=== PATIENT | female | born 1955 | race Caucasian/White ===

== ENCOUNTER 2017-02-24 07:30 | Inpatient (IN) | payer OTHER ==
[2017-02-24] MEDS ORDERED: PROTONIX IV IVP STA (07:37)
[2017-02-24] MEDS ORDERED: MORPHINE 4 MG/ML SYRINGE IVP STA (07:37)
[2017-02-24] MEDS ORDERED: SODIUM CHLORIDE 1,000 ML IV STA (07:37)
[2017-02-24] MEDS ORDERED: ZOFRAN 4 MG/2 ML IVP STA (07:37)
[2017-02-24 07:52] VITALS: BMI 22.4
[2017-02-24 08:00] LABS: BASOPHILS % (AUTO) 0.4 % (0.0-3.0); EOSINOPHILS # (AUTO) 0.1 K/ul (0.0-0.7); EOSINOPHILS % (AUTO) 0.7 % (0.0-7.0); HEMOGLOBIN 15.3 g/dl (12.0-16.0); IMMATURE GRANULOCYTE % (AUTO) 0.1 % (0.0-5.0); LYMPHOCYTES # (AUTO) 0.9 K/uL (0.60-3.4); LYMPHOCYTES % (AUTO) 12.8 (10.0-50.0); MEAN CORPUSCULAR HEMOGLOBIN 30.8 pg (27.0-31.0); MEAN CORPUSCULAR HGB CONC 34.8 (31.8-35.4); MEAN CORPUSCULAR VOLUME 88.7 fl (81.0-99.0); MONOCYTES # (AUTO) 0.8 K/uL (0.4-2.0); MONOCYTES % (AUTO) 11.4 (0-10); NEUTROPHILS # (AUTO) 5.4 K/ul (2.0-6.9); NEUTROPHILS % (AUTO) 74.6; PLATELET COUNT 316 10^3/uL (140-440); RED BLOOD COUNT 4.96 10^6/ul (4.20-5.40); WHITE BLOOD COUNT 7.18 K/ul (4.6-10.2)
--- NOTE | 2017-02-24 08:09 | CT ---
EXAM: CT abdomen pelvis without intravenous contrast 02/24/2017. Sagittal and coronal reformatted images obtained HISTORY: Abdominal pain COMPARISON: 12/12/2012 FINDINGS: 4 mm noncalcified nodule in the left lower lobe demonstrates long-term stability consiste nt with benign etiology. The liver shows no acute abnormality the gallbladder has been removed. The adrenal glands and kidneys show no acute process. The spleen and pancreas show no acute abnorma lity. There is no bowel obstruction. No evidence of appendicitis. Unremarkable urinary bladder. No free air or free fluid. Air-fluid levels throughout the colon suggestive of diarrhea. Fluid-filled distal small bowel. Cor relate for enteritis. IMPRESSION: 1. No urinary or bowel obstruction and normal appendix. 2. Fluid-filled distal small bowel. Air-fluid levels throughout the colon. Correlate for enteriti s/diarrhea. 3. Technically limited examination due to lack of intravenous contrast.
[2017-02-24 08:30] LABS: ALBUMIN 4.4 g/dL (3.4-5.0); ALBUMIN/GLOBULIN RATIO 1.19; ANION GAP 19.9; BILIRUBIN,TOTAL 0.8 mg/dL (0.00-1.20); CALCIUM 9.2 mg/dL (8.2-10.2); CREATININE 1.12 mg/dL (0.60-1.30); POTASSIUM 3.9 mmol/L (3.5-5.10); TOTAL PROTEIN 8.1 g/dL (5.8-8.1)
--- NOTE | 2017-02-24 08:34 | ED.PDOC ---
General ED Provider: Dr. TYRON VOGEL Chief Complaint: Nausea/Vomiting Stated Complaint: Patient was seen in the Clinic for diarrhea and vomiting and prescribed Lomotil and zofran . She has been taking but not gotten better. This morning vomited green fluid hence came to the ER. Has had some associated left upper quadrant cramping. Feels weak all over due to diarrhea. Time Seen by Physician: 07:50 Mode of Arrival: Wheelchair Information Source: Patient Exam Limitations: No limitations Primary Care Provider: CRISS VILLA Seen Within Last 72 Hours for Same Complaint By: PCP (Dr. Villa ) Nursing and Triage Documentation Reviewed and Agree: Yes GI Complaint Exam - Vomiting/Diarrhea Complaint/Exam Onset/Duration: 3 days Symptoms Are: Still present Episodes of Vomiting over last 24 Hours: 10 Episodes of Diarrhea Over Last 24 Hours: 20 Initial Severity: Moderate Current Severity: Severe Character of Vomiting: Reports: Bilious Character of Diarrhea: Reports: Watery Aggravating: Reports: Food Alleviating: Reports: None Associated Signs and Symptoms: Reports: Light-headedness, Cramping. Denies: Melena, Hematemesis, Fever, Abdominal pain Related History: Denies: Similar episode, Recent antibiotics Use of Oral Contraceptives: No Use of Depoprovera: No Compliant With Contraceptive Use: No Non-GI Risk Factors: Denies: Vomiting due to neuro, Vomiting due to cardiac Surgical Obstruction Risk Factors: Reports: Bilious emesis Related Surgical History: Reports: Cholecystectomy. Denies: Appendectomy, Gastric Bypass, AAA repair, Small bowel obstruction Abdominal Findings: Absent: Pulsatile mass, Abdominal distention, Unequal femoral pulses, Rebound tenderness, Peritoneal signs, [place] tender, CVA Tenderness, Hernia, Inguinal swelling Kussmaul Respirations Present: No Differential Diagnoses: Dehydration, Gastritis, Viral Gastroenteritis Review of Systems - Review Of Systems Constitutional: Reports: Weakness, Loss of appetite Eyes: Reports: No symptoms Ears, Nose, Mouth, Throat: Reports: No symptoms Respiratory: Reports: No symptoms Cardiac: Reports: No symptoms GI: Reports: Abdominal pain : Reports: No symptoms Musculoskeletal: Reports: No symptoms Skin: Reports: No symptoms Neurological: Reports: Anxiety Endocrine: Reports: Increased thirst Hematologic/Lymphatic: Reports: No symptoms All Other Systems: Reviewed and Negative Past Medical History - Past Medical History Endocrine: Reports: Dyslipidemia Cardiovascular: Reports: None Respiratory: Reports: None Hematological: Reports: None Gastrointestinal: Reports: None Genitourinary: Reports: None Neuro/Psych: Reports: Depression Musculoskeletal: Reports: None Cancer: Reports: None Last Menstrual Period: 12 years - Surgical History General Surgical History: Reports: Cholecystectomy, Other (breast cyst removal, D/C) - Family History Family History: Reports: None - Social History Smoking Status: Former smoker Hx Substance Use: No Alcohol Screening: None Physical Exam - Physical Exam Appearance: Ill-appearing, Thin Ill-appearing: Moderate Pain Distress: Moderate Eyes: ASIA Neck: Supple Respiratory: Airway patent, Breath sounds clear, Breath sounds equal, Respirations nonlabored Cardiovascular: Tachycardia GI/: Soft, Tender (mild with no rebound ) Musculoskeletal: Normal strength, ROM intact, No edema, No calf tenderness Skin: Warm, Dry Neurological: Sensation intact, Alert, Oriented, Disoriented Psychiatric: Anxious Interpretation - Radiology Interpretation Radiology Interpretation By: Radiologist Radiology Results: Negative Exam Interpreted: CT Scan Re-Evaluation - Re-Evaluation Time of Re-Evaluation: 08:44 Status: Improved Physician Notification - Case Discussed Physician Notified: Villa Time of Notification: 08:35 (ok to admit ) Critical Care Note - Critical Care Note Total Time (mins): 5 Course - Course Hematology/Chemistry: 02/24/17 07:50 02/24/17 07:50 Orders, Labs, Meds: Lab Review 02/24/17 07:50 WBC 7.18 RBC 4.96 Hgb 15.3 Hct 44.0 MCV 88.7 MCH 30.8 MCHC 34.8 RDW Coeff of Ancelmo 12.6 Plt Count 316 Immature Gran % (Auto) 0.1 Neut % (Auto) 74.6 Lymph % (Auto) 12.8 [place] % (Auto) 11.4 H Eos % (Auto) 0.7 Baso % (Auto) 0.4 Immature Gran # (Auto) 0.0 Neut # 5.4 Lymph # 0.9 [place] # 0.8 Eos # 0.1 Baso # 0.0 Sodium 136 Potassium 3.9 Chloride 101 Carbon Dioxide 19 L Anion Gap 19.9 BUN Pending Creatinine 1.12 Estimated GFR (MDRD) 49.00 BUN/Creatinine Ratio Pending Glucose 145 H Calcium 9.2 Total Bilirubin 0.80 AST 171 H ALT 88 H Alkaline Phosphatase 77 Total Protein 8.1 Albumin 4.4 Globulin 3.7 Albumin/Globulin Ratio 1.19 Amylase 81 Lipase 32 Orders Category Date Time Status ADMIT PATIENT INPATIENT .TO [facility] (NON-MONITORED ADMISSION 02/24/17 08: 37 Active BED) ACTIVITY .Early Mobilization for VTE Prevention CARE 02/24/17 08:38 Active GIVE HS SNACK 2100 CARE 02/24/17 08:43 Active INTAKE & OUTPUT Q8HR CARE 02/24/17 08:37 Active VITAL SIGNS Q4HR CARE 02/24/17 08:38 Active CLEAR LIQUID DIET DIETARY 02/24/17 Lunch Ordered HS SNACK DIETARY 02/24/17 Dinner Ordered ED IV/MEDIPORT/POWERPORT .ONCE EMERGENCY 02/24/17 07:37 Active AMYLASE Stat LAB 02/24/17 07:50 Results CBC W/ AUTO DIFF DAILY@0600 LAB 02/25/17 06:00 Ordered CBC W/ AUTO DIFF DAILY@0600 LAB 02/26/17 06:00 Ordered CBC W/ AUTO DIFF DAILY@0600 LAB 02/27/17 06:00 Ordered CBC W/ AUTO DIFF DAILY@0600 LAB 02/28/17 06:00 Ordered CBC W/ AUTO DIFF DAILY@0600 LAB 03/01/17 06:00 Ordered CBC W/ AUTO DIFF DAILY@0600 LAB 03/02/17 06:00 Ordered CBC W/ AUTO DIFF DAILY@0600 LAB 03/03/17 06:00 Ordered CBC W/ AUTO DIFF DAILY@0600 LAB 03/04/17 06:00 Ordered CBC W/ AUTO DIFF DAILY@0600 LAB 03/05/17 06:00 Ordered CBC W/ AUTO DIFF DAILY@0600 LAB 03/06/17 06:00 Ordered CBC W/ AUTO DIFF DAILY@0600 LAB 03/07/17 06:00 Ordered CBC W/ AUTO DIFF DAILY@0600 LAB 03/08/17 06:00 Ordered CBC W/ AUTO DIFF DAILY@0600 LAB 03/09/17 06:00 Ordered CBC W/ AUTO DIFF DAILY@0600 LAB 03/10/17 06:00 Ordered CBC W/ AUTO DIFF DAILY@0600 LAB 03/11/17 06:00 Ordered CBC W/ AUTO DIFF DAILY@0600 LAB 03/12/17 06:00 Ordered CBC W/ AUTO DIFF DAILY@0600 LAB 03/13/17 06:00 Ordered CBC W/ AUTO DIFF DAILY@0600 LAB 03/14/17 06:00 Ordered CBC W/ AUTO DIFF DAILY@0600 LAB 03/15/17 06:00 Ordered CBC W/ AUTO DIFF DAILY@0600 LAB 03/16/17 06:00 Ordered CBC W/ AUTO DIFF Stat LAB 02/24/17 07:50 Completed COMPREHENSIVE METABOLIC PANEL DAILY@0600 LAB 02/25/17 06:00 Ordered COMPREHENSIVE METABOLIC PANEL DAILY@0600 LAB 02/26/17 06:00 Ordered COMPREHENSIVE METABOLIC PANEL DAILY@0600 LAB 02/27/17 06:00 Ordered COMPREHENSIVE METABOLIC PANEL DAILY@0600 LAB 02/28/17 06:00 Ordered COMPREHENSIVE METABOLIC PANEL DAILY@0600 LAB 03/01/17 06:00 Ordered COMPREHENSIVE METABOLIC PANEL DAILY@0600 LAB 03/02/17 06:00 Ordered COMPREHENSIVE METABOLIC PANEL DAILY@0600 LAB 03/03/17 06:00 Ordered COMPREHENSIVE METABOLIC PANEL DAILY@0600 LAB 03/04/17 06:00 Ordered COMPREHENSIVE METABOLIC PANEL DAILY@0600 LAB 03/05/17 06:00 Ordered COMPREHENSIVE METABOLIC PANEL DAILY@0600 LAB 03/06/17 06:00 Ordered COMPREHENSIVE METABOLIC PANEL DAILY@0600 LAB 03/07/17 06:00 Ordered COMPREHENSIVE METABOLIC PANEL DAILY@0600 LAB 03/08/17 06:00 Ordered COMPREHENSIVE METABOLIC PANEL DAILY@0600 LAB 03/09/17 06:00 Ordered COMPREHENSIVE METABOLIC PANEL DAILY@0600 LAB 03/10/17 06:00 Ordered COMPREHENSIVE METABOLIC PANEL DAILY@0600 LAB 03/11/17 06:00 Ordered COMPREHENSIVE METABOLIC PANEL DAILY@0600 LAB 03/12/17 06:00 Ordered COMPREHENSIVE METABOLIC PANEL DAILY@0600 LAB 03/13/17 06:00 Ordered COMPREHENSIVE METABOLIC PANEL DAILY@0600 LAB 03/14/17 06:00 Ordered COMPREHENSIVE METABOLIC PANEL DAILY@0600 LAB 03/15/17 06:00 Ordered COMPREHENSIVE METABOLIC PANEL DAILY@0600 LAB 03/16/17 06:00 Ordered COMPREHENSIVE METABOLIC PANEL Stat LAB 02/24/17 07:50 Results LIPASE Stat LAB 02/24/17 07:50 Results URINALYSIS C & S IF INDICATED Stat LAB 02/24/17 07:37 Uncollected 0.9 % Sodium Chloride [Saline Flush] MEDS 02/24/17 07:37 Ordered 1 syr IVF PRN PRN Diphenoxylate HCl/Atropine [Lomotil] MEDS 02/24/17 08:37 Ordered 1 tab PO QID PRN Metoclopramide HCl [Reglan] MEDS 02/24/17 08:37 Ordered 5 mg IVP Q6H PRN Morphine Sulfate [Morphine 2 mg/ml Syringe] MEDS 02/24/17 08:37 Ordered 2 mg IVP Q4H PRN Morphine Sulfate [Morphine 4 mg/ml Syringe] MEDS 02/24/17 07:37 Discontinued 4 mg IVP ONCE STA Ondansetron HCl/Pf [Zofran 4 mg/2 ml] MEDS 02/24/17 07:37 Discontinued 4 mg IVP ONCE STA Ondansetron HCl/Pf [Zofran 4 mg/2 ml] MEDS 02/24/17 08:37 Ordered 4 mg IVP Q6H PRN Pantoprazole Sodium [Protonix IV] MEDS 02/24/17 09:00 Ordered 40 mg IVP DAILY Pantoprazole Sodium [Protonix IV] MEDS 02/24/17 07:37 Discontinued 40 mg IVP ONCE STA Potassium Chloride/D5-0.9%NaCl [D5%-Ns-KCl 20 Meq/l IV MEDS 02/24/17 09:00 Ordered Pricila] 1,000 ml IV 125 mls/hr Pravastatin Sodium [Pravachol] MEDS 02/24/17 21:00 Ordered 40 mg PO BEDTIME Sertraline HCl [Zoloft] MEDS 02/24/17 09:00 Ordered 50 mg PO DAILY Sodium Chloride 0.9% [Sodium Chloride] 1,000 ml MEDS 02/24/17 09:00 Ordered IV 1,000 mls/hr Sodium Chloride 0.9% [Sodium Chloride] 1,000 ml MEDS 02/24/17 07:37 Discontinued IV BOLUS RESUSCITATION STATUS Routine OTHERS 02/24/17 08:[address] ABD/PEL WO RENAL STONE PROT Stat RADS 02/24/17 07:37 Completed PT CONSULT Routine THERAPIES 02/24/17 Ordered Medications Generic Name Dose Route Start Last Admin Trade Name Freq PRN Reason Stop Dose Admin Diphenoxylate HCl/Atropine 1 tab 02/24/17 08:37 Lomotil PO QID PRN Diarrhea Sodium Chloride 1,000 mls @ 1,000 mls/hr 02/24/17 09:00 Sodium Chloride IV .Q1H AMBAR Potassium Chloride/Dextrose/Sod Cl 1,000 mls @ 125 mls/hr 02/24/17 09:00 D5%-Ns-Kcl 20 Meq/L Iv Pricila IV .Q8H AMBAR Metoclopramide HCl 5 mg 02/24/17 08:37 Reglan IVP Q6H PRN Nausea / Vomiting Morphine Sulfate 2 mg 02/24/17 08:37 Morphine 2 Mg/Ml Syringe IVP Q4H PRN Severe Pain Ondansetron HCl 4 mg 02/24/17 08:37 Zofran 4 Mg/2 Ml IVP Q6H PRN Nausea / Vomiting Pantoprazole Sodium 40 mg 02/24/17 09:00 Protonix Iv IVP DAILY AMBAR Pravastatin Sodium 40 mg 02/24/17 21:00 Pravachol PO BEDTIME AMBAR Sertraline HCl 50 mg 02/24/17 09:00 Zoloft PO DAILY AMBAR Sodium Chloride 1 syr 02/24/17 07:37 02/24/17 08:29 Saline Flush IVF 1 syr PRN PRN Administration To flush IV Discontinued Medications Generic Name Dose Route Start Last Admin Trade Name Freq PRN Reason Stop Dose Admin Sodium Chloride 1,000 mls @ 1,000 mls/hr 02/24/17 07:37 02/24/17 08:22 Sodium Chloride IV 02/24/17 08:36 1,000 mls/hr BOLUS STA Administration Morphine Sulfate 4 mg 02/24/17 07:37 Morphine 4 Mg/Ml Syringe IVP 02/24/17 07:38 ONCE STA Ondansetron HCl 4 mg 02/24/17 07:37 02/24/17 08:22 Zofran 4 Mg/2 Ml IVP 02/24/17 07:38 4 mg ONCE STA Administration Pantoprazole Sodium 40 mg 02/24/17 07:37 02/24/17 08:24 Protonix Iv IVP 02/24/17 07:38 40 mg ONCE STA Administration Vital Signs: Temp Pulse Resp BP Pulse Ox 02/24/17 07:31 96.1 F L 107 H 20 117/84 99 Departure - Departure Time of Disposition: 08:49 Disposition: ADMITTED INPATIENT Discharge Problem: Gastroenteritis, Nausea, Vomiting Condition: Stable Pt referred to PMD for follow-up: No (admitted ) Allergies/Adverse Reactions: Allergies Penicillins Adverse Reaction (Verified 02/24/17 07:40) Home Medications: Ambulatory Orders Biotin 1 mg PO DAILY 02/24/17 Cholecalciferol (Vitamin D3) [Vitamin D3] 1,000 unit PO DAILY 02/24/17 Diphenhydramine HCl [Benadryl] 25 mg PO ONCE 02/24/17 Diphenoxylate HCl/Atropine [Diphenoxylate-Atrop 2.5-0.025] 1 each PO TID PRN Multivitamin 1 cap PO DAILY 02/24/17 Ondansetron [Zuplenz] 4 mg PO TID PRN 02/24/17 Pravastatin Sodium [Pravachol] 40 mg PO BEDTIME 02/24/17 Sertraline HCl 50 mg PO DAILY 02/24/17
[2017-02-24] MEDS ORDERED: ZOFRAN 4 MG/2 ML IVP PRN (08:37)
[2017-02-24] MEDS ORDERED: MORPHINE 2 MG/ML SYRINGE IVP PRN (08:37)
[2017-02-24] MEDS ORDERED: REGLAN IVP PRN (08:37)
[2017-02-24 08:53] LABS: BUN/CREATININE RATIO 21.42
[2017-02-24] MEDS: ZOLOFT PO SCH (11:04)
[2017-02-24] MEDS: PROTONIX IV IVP SCH (11:11)
[2017-02-24] MEDS: SODIUM CHLORIDE 1,000 ML IV SCH ×5 (11:26→20:05)
[2017-02-24] MEDS: D5%-NS-KCL 20 MEQ/L IV SOL 1,000 ML IV SCH ×2 (12:46→20:57)
[2017-02-24 16:11] LABS: BILIRUBIN,URINE 1+ (NEGATIVE); KETONES,URINE 1+ (NEGATIVE); LEUKOCYTE ESTERASE ,URINE 1+ (NEGATIVE); NITRITE,URINE Negative (NEGATIVE); PH,URINE 5.5 (5-9); PROTEIN,URINE 1+ (NEGATIVE); URINE, BLOOD Negative (NEGATIVE)
[2017-02-24 16:14] LABS: ADD URINE MICROSCOPIC YES
[2017-02-24 16:15] LABS: BACTERIA,URINE 1+ (NOT PRESENT)
[2017-02-24] MEDS: PRAVACHOL PO SCH (20:57)
[2017-02-25] MEDS ORDERED: POTASSIUM CHLORIDE 20 MEQ VIAL-ADDITIVE ONLY IV ONE (05:20)
[2017-02-25 05:46] LABS: BASOPHILS % (AUTO) 0.9 % (0.0-3.0); EOSINOPHILS # (AUTO) 0.1 K/ul (0.0-0.7); EOSINOPHILS % (AUTO) 1.8 % (0.0-7.0); HEMATOCRIT 33.3 % (37.0-47.0); HEMOGLOBIN 11.4 g/dl (12.0-16.0); IMMATURE GRANULOCYTE % (AUTO) 0.3 % (0.0-5.0); LYMPHOCYTES # (AUTO) 0.9 K/uL (0.60-3.4); LYMPHOCYTES % (AUTO) 28.6 (10.0-50.0); MEAN CORPUSCULAR HEMOGLOBIN 30.7 pg (27.0-31.0); MEAN CORPUSCULAR HGB CONC 34.2 (31.8-35.4); MEAN CORPUSCULAR VOLUME 89.8 fl (81.0-99.0); MONOCYTES # (AUTO) 0.5 K/uL (0.4-2.0); MONOCYTES % (AUTO) 16.6 (0-10); NEUTROPHILS # (AUTO) 1.7 K/ul (2.0-6.9); NEUTROPHILS % (AUTO) 51.8; PLATELET COUNT 219 10^3/uL (140-440); RED BLOOD COUNT 3.71 10^6/ul (4.20-5.40); WHITE BLOOD COUNT 3.25 K/ul (4.6-10.2)
[2017-02-25] MEDS: D5%-NS-KCL 20 MEQ/L IV SOL 1,000 ML IV SCH ×2 (05:55→14:28)
[2017-02-25 06:20] LABS: ALBUMIN 3.2 g/dL (3.4-5.0); ALBUMIN/GLOBULIN RATIO 1.33; ANION GAP 8.8; BILIRUBIN,TOTAL 0.43 mg/dL (0.00-1.20); BUN/CREATININE RATIO 13.04; CALCIUM 7.5 mg/dL (8.2-10.2); CREATININE 0.69 mg/dL (0.60-1.30); POTASSIUM 3.8 mmol/L (3.5-5.10); TOTAL PROTEIN 5.6 g/dL (5.8-8.1)
[2017-02-25] MEDS: PROTONIX IV IVP SCH (08:47)
[2017-02-25] MEDS: ZOLOFT PO SCH (08:51)
[2017-02-25] MEDS: LOMOTIL PO PRN ×2 (11:11→20:33)
[2017-02-25] MEDS ORDERED: D5%-NS-KCL 20 MEQ/L IV SOL 1,000 ML IV SCH (14:28)
[2017-02-25] MEDS: PRAVACHOL PO SCH (20:33)
[2017-02-26 05:52] LABS: BASOPHILS % (AUTO) 1.1 % (0.0-3.0); EOSINOPHILS # (AUTO) 0.1 K/ul (0.0-0.7); EOSINOPHILS % (AUTO) 2.8 % (0.0-7.0); HEMATOCRIT 32.8 % (37.0-47.0); HEMOGLOBIN 11.2 g/dl (12.0-16.0); IMMATURE GRANULOCYTE % (AUTO) 0.4 % (0.0-5.0); LYMPHOCYTES # (AUTO) 1.2 K/uL (0.60-3.4); LYMPHOCYTES % (AUTO) 43.1 (10.0-50.0); MEAN CORPUSCULAR HEMOGLOBIN 30.6 pg (27.0-31.0); MEAN CORPUSCULAR HGB CONC 34.1 (31.8-35.4); MEAN CORPUSCULAR VOLUME 89.6 fl (81.0-99.0); MONOCYTES # (AUTO) 0.4 K/uL (0.4-2.0); MONOCYTES % (AUTO) 15.7 (0-10); NEUTROPHILS % (AUTO) 36.9; PLATELET COUNT 210 10^3/uL (140-440); RED BLOOD COUNT 3.66 10^6/ul (4.20-5.40); WHITE BLOOD COUNT 2.81 K/ul (4.6-10.2)
[2017-02-26 06:20] LABS: ALBUMIN 3.2 g/dL (3.4-5.0); ALBUMIN/GLOBULIN RATIO 1.33; ANION GAP 8.4; BILIRUBIN,TOTAL 0.48 mg/dL (0.00-1.20); BUN/CREATININE RATIO 4.91; CALCIUM 7.9 mg/dL (8.2-10.2); CREATININE 0.61 mg/dL (0.60-1.30); POTASSIUM 3.4 mmol/L (3.5-5.10); TOTAL PROTEIN 5.6 g/dL (5.8-8.1)
[2017-02-26] MEDS ORDERED: DECADRON 4 MG/ML SDV IM STA (08:05)
[2017-02-26] MEDS ORDERED: TORADOL IVP STA (08:05)
[2017-02-26] MEDS ORDERED: [UNRECOGNIZED DRUG - MIXTURE] IV SCH (08:08)
[2017-02-26] MEDS: ZOLOFT PO SCH (08:34)
[2017-02-26] MEDS: PROTONIX IV IVP SCH (08:40)
--- NOTE | 2017-02-26 10:23 | PCM.PROG ---
Attending Provider: ATTENDING PROVIDER: Dr. CRISS VILLA DATE OF SERVICE: 02/26/17 SUBJECTIVE: This 61 year old WHITE/ F was hospitalized 02/24/17. The patient is admitted with acute gastroenteritis. The patient continues to have diarrhea. Mild nausea, no vomiting. She is on a full liquid diet. Liver functions are better. The patient has mild hypokalemia REVIEW OF SYSTEMS: CONSTITUTIONAL: No night sweats. No fatigue, malaise, lethargy. No fever or chills. HEENT: Eyes: No visual changes. No eye pain. No eye discharge. ENT: No runny nose. No epistaxis. No sinus pain. No odynophagia. No congestion. RESPIRATORY: No cough, no congestion. No hemoptysis. CARDIOVASCULAR: No angina symptoms. No CHF symptoms. No atypical chest pain for CAD. No palpitations. No shortness of breath. GASTROINTESTINAL: Appetite is not good. Diarrhea with no abdominal cramping or pain. Mild nausea. No vomiting. No constipation. No hematemesis. No hematochezia. GENITOURINARY: No urgency. No frequency. No dysuria. No hematuria. No obstructive symptoms. No discharge. No pain. No significant abnormal bleeding. MUSCULOSKELETAL: No musculoskeletal pain; no joint swelling. NEUROLOGICAL: Awake, alert, oriented to time, place and person. No headache. No neck pain. No syncope. No seizures. No dizziness. PSYCHIATRIC: Not anxious. No depression. No suicidal thoughts. No homicidal thoughts. SKIN: No rash. No lesions. No wounds. ENDOCRINE: No unexplained weight loss. No weight gain. HEMATOLOGIC/LYMPHATIC: No anemia. No purpura. No petechiae. No prolonged or excessive bleeding. No palpable lymph nodes. PHYSICAL EXAMINATION: GENERAL: The patient is awake, alert and oriented, lying in bed in no distress. VITAL SIGNS: Temperature 96.9 F, Pulse 86, Respiratory Rate 16, BP 118/77, Pulse Ox 97% HEENT: Head normocephalic, atraumatic. Eyes: Extraocular muscles are intact. Pupils are equal, round and reactive to light and accommodation. Ears: No lesions. Nose appeared normal. Throat: No exudate or erythema. NECK: Supple. No JVD, no carotid bruit. No lymphadenopathy or thyromegaly. LUNGS: Clear to auscultation. Percussion note normal. Chest symmetrical. HEART: S1, S2, no S3. No murmurs. No cyanosis or clubbing. No ascites. Pulses: Dorsalis pedis and posterior tibial pulses +1 to +2 both sides. ABDOMEN: Soft. Non-tender. Bowel sounds active. No CVA tenderness. No mass felt. EXTREMITIES: No edema. Full range of motion of all extremities, equal. NEUROLOGIC: No focal deficit. Cranial nerves II through XII are grossly intact. No headache, no double vision or headache. SKIN: Not dry. Intact. Turgor-normal. LYMPHATIC: No palpable lymph nodes/no lymphedema. MUSCULOSKELETAL: Normal joints with no swelling. Muscle tone is normal. LAB REVIEW: 02/26/17 04:50 02/26/17 04:50 02/26/17 04:50: WBC 2.81 L, RBC 3.66 L, Hgb 11.2 L, Hct 32.8 L, MCV 89.6, MCH 30.6, MCHC 34.1, RDW Coeff of Ancelmo 12.7, Plt Count 210, Immature Gran % (Auto) 0.4, Neut % (Auto) 36.9, Lymph % (Auto) 43.1, [place] % (Auto) 15.7 H, Eos % (Auto ) 2.8, Baso % (Auto) 1.1, Immature Gran # (Auto) 0.0, Neut # 1.0 L, Lymph # 1.2 , [place] # 0.4, Eos # 0.1, Baso # 0.0, Sodium 142, Potassium 3.4 L, Chloride 115 H , Carbon Dioxide 22 L, Anion Gap 8.4, BUN 3 L, Creatinine 0.61, Estimated GFR ( MDRD) 99.00, BUN/Creatinine Ratio 4.91, Glucose 90, Calcium 7.9 L, Total Bilirubin 0.48, AST 59 H D, ALT 123 H D, Alkaline Phosphatase 55, Total Protein 5.6 L, Albumin 3.2 L, Globulin 2.4, Albumin/Globulin Ratio 1.33 ASSESSMENT: 1. Acute gastroenteritis, resolving slowly. PLAN: 1. Continue symptomatic treatment with Lomotil 2. Advance diet to soft 3. Liver functions are better, scheduled for ultrasound of abdomen this a.m. 4. Potassium supplement being given 5. D/C Pravastatin 6. IV fluids at 50 cc 7. Up and about 8. Toradol 30 mg IV now 9. 1/2 cc Decadron Plan and coordination of the patient's care discussed in the presence of [employer] Dean and nurse. CONDITION: Stable SCRIBED BY: GIOVANY MCCOY Parole Director scribed while in presence of service performed by Dr. CRISS VILLA on 02/26/17 ([id number])
--- NOTE | 2017-02-26 12:18 | US ---
EXAM: Ultrasound abdomen limited HISTORY: Elevated liver enzymes COMPARISON: None TECHNIQUE: Limited ultrasound abdomen right upper quadrant was performed FINDINGS: Pancreas obscured secondary bowel gas shadowing. Liver normal in size and echogenicity. Main portal vein patent with normal direction of flow. Patient status post cholecystectomy. Mild dilation of the common bile duct measuring 0.8 cm IMPRESSION: 1. Status post cholecystectomy. Mild dilation of the common bile duct measuring 0.8 cm may be post surgical. Findings can be correlated with liver function tests. 2. Normal sonographic appearance of the liver.
--- NOTE | 2017-02-26 13:09 | HP ---
DATE OF SERVICE: 02/24/17 REASON FOR HOSPITALIZATION/HISTORY OF PRESENT ILLNESS: Acute gastroenteritis type of symptoms for nearly 2-3 days duration. According to the patient the symptoms started a few days prior to hospitalization with nausea. She doesn't remember anything that she could have eaten could have started it. The patient feelings, weak, tired and she has lost 6-7 pounds in last 2-3 days. She is unable to eat anything. She is throwing up and practically 8-10 times diarrhea with vomiting everyday for last 2 days. She was seen in the emergency room by ER attending on 02-24-17. She was found to be dehydrated and was hospitalized. REVIEW OF SYSTEMS: CONSTITUTIONAL: No night sweats. Weakness and fatigue. No fever or chills. HEENT: Eyes: No visual changes. No eye pain. No eye discharge. ENT: No runny nose. No epistaxis. No sinus pain. No sore throat. No odynophagia. No ear pain. No congestion. RESPIRATORY: No cough, no congestion. No hemoptysis. CARDIOVASCULAR: No angina symptoms. No CHF symptoms. No atypical chest pain for CAD. No palpitations. No shortness of breath. GASTROINTESTINAL: No abdominal pain. Nausea and had been vomiting for two days prior to hospitalization. Diarrhea and loose bowel movements. No blood in the stool. Cramping in the abdomen. Light headedness. No hematemesis. No hematochezia. GENITOURINARY: No urgency. No frequency. No dysuria. No hematuria. No obstructive symptoms. No discharge. No pain. No significant abnormal bleeding. MUSCULOSKELETAL: No musculoskeletal pain. No joint swelling. No arthritis. NEUROLOGICAL: No headache. No neck pain. No syncope. No seizures. No dizziness. PSYCHIATRIC: Not anxious. No depression. No suicidal thoughts. No homicidal thoughts. SKIN: No rash. No lesions. No wounds. ENDOCRINE: No unexplained weight loss. No weight gain. HEMATOLOGIC/LYMPHATIC: No anemia. No purpura. No petechiae. No prolonged or excessive bleeding. No palpable lymph nodes. PERSONAL/FAMILY/SOCIAL HISTORY: The patient is and lives with the . Non-smoker and no alcohol abuse. PAST MEDICAL/SURGICAL PROBLEMS: Kyphosis Chronic lung disease Dyslipidemia Depression Generalized osteoarthritis MEDICATIONS: Biotin Vitamin D3 Benadryl Pravastatin Sertraline The patient was given Lomotil and Zofran as an outpatient for this gastroenteritis but in fact the patient's condition worsened. ALLERGIES: Penicillin PHYSICAL EXAMINATION: GENERAL: The patient is oriented to time, place and person. VITAL SIGNS: Temperature 98.5, pulse 80, respiratory rate 20, blood pressure 110/70 and pulse ox 97%. HEENT: Head normocephalic, atraumatic. Eyes: Extraocular muscles are intact. Pupils are equal, round and reactive to light and accommodation. Ears: No lesions. Nose appeared normal. Throat: No exudate or erythema. Mucosa membrane dry. Some what pale. NECK: Supple. No JVD, no carotid bruit. No lymphadenopathy or thyromegaly. LUNGS: Decreased breath sounds but Clear to auscultation. Percussion note normal. Chest symmetrical. HEART: S1, S2, no S3. No murmurs. No cyanosis or clubbing. No ascites. Pulses: Dorsalis pedis and posterior tibial pulses +1 to +2 both sides. ABDOMEN: Soft. Nontender. Bowel sounds hyperactive. No CVA tenderness. No mass felt. EXTREMITIES: No edema. Full range of motion of all extremities, equal. NEUROLOGIC: No focal deficit. Cranial nerves II through XII are grossly intact. No headache, no double vision or headache. SKIN: Dry. Intact. Turgor - normal. LYMPHATIC: No palpable lymph nodes/no lymphedema. MUSCULOSKELETAL: Normal joints with no swelling. Muscle tone is normal. Kyphosis and Scoliosis present. LABS: Hgb 15, hct 44, WBC 7,000 normal differential, creatinine 1.1, BUN 24, potassium 3.9, glucose 145, AST 171, ALT 88 and [place] 11.4 ASSESSMENT: 1. Acute gastroenteritis 2. Normal liver profile 3. Increase monocyte with normal WBC count, in fact on the lower side could be related to viral acute gastroenteritis 4. Dehydration 5. Chronic lung disease 6. Depression 7. Scoliosis/Kyphosis with generalized osteoarthritis PLAN: 1. Continue Lomotil 2. Continue Reglan 3. Continue Zofran 4. Continue Morphine 5. IV fluids 1,000cc D5 1/2 normal saline 125cc per hour 6. Continue Zoloft 7. Pravachol CONDITION: Stable. TIME SPENT: More than 70 minutes. MTDD
[2017-02-26] MEDS ORDERED: BENADRYL PO SCH (21:00)
[2017-02-27 05:19] LABS: BASOPHILS % (AUTO) 0.8 % (0.0-3.0); EOSINOPHILS % (AUTO) 0.6 % (0.0-7.0); HEMATOCRIT 33.1 % (37.0-47.0); HEMOGLOBIN 11.5 g/dl (12.0-16.0); IMMATURE GRANULOCYTE % (AUTO) 0.2 % (0.0-5.0); LYMPHOCYTES # (AUTO) 2.3 K/uL (0.60-3.4); MEAN CORPUSCULAR HEMOGLOBIN 30.7 pg (27.0-31.0); MEAN CORPUSCULAR HGB CONC 34.7 (31.8-35.4); MEAN CORPUSCULAR VOLUME 88.5 fl (81.0-99.0); MONOCYTES # (AUTO) 0.6 K/uL (0.4-2.0); MONOCYTES % (AUTO) 12.6 (0-10); NEUTROPHILS % (AUTO) 39.8; PLATELET COUNT 245 10^3/uL (140-440); RED BLOOD COUNT 3.74 10^6/ul (4.20-5.40); WHITE BLOOD COUNT 4.91 K/ul (4.6-10.2)
[2017-02-27 05:39] LABS: ALBUMIN 3.5 g/dL (3.4-5.0); ALBUMIN/GLOBULIN RATIO 1.35; ANION GAP 11.5; BILIRUBIN,TOTAL 0.62 mg/dL (0.00-1.20); BUN/CREATININE RATIO 10.76; CALCIUM 8.6 mg/dL (8.2-10.2); CREATININE 0.65 mg/dL (0.60-1.30); POTASSIUM 3.5 mmol/L (3.5-5.10); TOTAL PROTEIN 6.1 g/dL (5.8-8.1)
--- NOTE | 2017-02-27 08:19 | PN ---
DATE OF SERVICE: 02/25/17 SUBJECTIVE: The patient is a 61 year old white female hospitalized with acute gastroenteritis. The patient's acute gastroenteritis seems to be resolving. The patient is feeling fatigue, tired and generalized aches and pain's. The patient' s WBC count is low indicating viral disease and also the liver profile is abnormal indicating the same thing. REVIEW OF SYSTEMS: CONSTITUTIONAL: No night sweats. Weakness and fatigue. No fever or chills. HEENT: Eyes: No visual changes. No eye pain. No eye discharge. ENT: No runny nose. No epistaxis. No sinus pain. No sore throat. No odynophagia. No congestion. RESPIRATORY: No cough, no congestion. No hemoptysis. CARDIOVASCULAR: No angina symptoms. No CHF symptoms. No atypical chest pain for CAD. No palpitations. No shortness of breath. GASTROINTESTINAL: No abdominal cramping or pain at all. Mild nausea but vomiting is practically absent for past 24 hours. Diarrhea few and far between. No hematemesis. No hematochezia. Appetite is improving some but still not good. GENITOURINARY: No urgency. No frequency. No dysuria. No hematuria. No obstructive symptoms. No discharge. No pain. No significant abnormal bleeding. MUSCULOSKELETAL: No musculoskeletal pain; no joint swelling. NEUROLOGICAL: No headache. No neck pain. No syncope. No seizures. No dizziness. PSYCHIATRIC: Not anxious. No depression. No suicidal thoughts. No homicidal thoughts. SKIN: No rash. No lesions. No wounds. ENDOCRINE: No unexplained weight loss. No weight gain. HEMATOLOGIC/LYMPHATIC: No anemia. No purpura. No petechiae. No prolonged or excessive bleeding. No palpable lymph nodes. PHYSICAL EXAMINATION: GENERAL: The patient is oriented to time, place and person. VITAL SIGNS: Temperature 98, pulse 84, respiratory rate 20, blood pressure 123/ 73 and pulse ox 96%. HEENT: Head normocephalic, atraumatic. Eyes: Extraocular muscles are intact. Pupils are equal, round and reactive to light and accommodation. Ears: No lesions. Nose appeared normal. Throat: No exudate or erythema. NECK: Supple. No JVD, no carotid bruit. No lymphadenopathy or thyromegaly. LUNGS: Decreased breath sounds but clear to auscultation. Percussion note normal. Chest symmetrical. HEART: S1, S2, no S3. No murmurs. No cyanosis or clubbing. No ascites. Pulses: Dorsalis pedis and posterior tibial pulses +1 to +2 both sides. ABDOMEN: Soft. Nontender. Bowel sounds active. No CVA tenderness. No mass felt. EXTREMITIES: No edema. Full range of motion of all extremities, equal. NEUROLOGIC: No focal deficit. Cranial nerves II through XII are grossly intact. No headache, no double vision or headache. SKIN: Not dry. Intact. Turgor - normal. LYMPHATIC: No palpable lymph nodes/no lymphedema. MUSCULOSKELETAL: Normal joints with no swelling. Muscle tone is normal. LABS: Hgb 11.4, hct 33, WBC 3,200 normal differential, creatinine 0.6, BUN 9 and potassium 3.8. ASSESSMENT: 1. Acute viral gastroenteritis 2. Dehydration 3. Abnormal liver profile because of the viral gastroenteritis PLAN: 1. CBC and CMP 2. Cut down IV fluids to 50cc 3. Encourage patient to eat 4. Explained about viral gastroenteritis and it's symptoms and that those symptoms could last for few weeks. CONDITION: Stable. TIME SPENT: More than 30 minutes. Plan and coordination of the patient's care discussed in the presence of nurse. BIB
[2017-02-27] MEDS: ZOLOFT PO SCH (09:32)
[2017-02-27] MEDS: PROTONIX IV IVP SCH (09:33)
--- NOTE | 2017-02-27 10:16 | PCM.PROG ---
Attending Provider: ATTENDING PROVIDER: Dr. CRISS VILLA DATE OF SERVICE: 02/27/17 SUBJECTIVE: This 61 year old WHITE/ F was hospitalized 02/24/17. The patient is admitted with acute viral gastroenteritis. The patient's liver function normal. WBC count is coming up. She is feeling better. She has no nausea, no vomiting and no diarrhea. She is up and about, wants to go home. The patient is able to tolerate food very well. REVIEW OF SYSTEMS: CONSTITUTIONAL: No night sweats. No fatigue, malaise, lethargy. No fever or chills. HEENT: Eyes: No visual changes. No eye pain. No eye discharge. ENT: No runny nose. No epistaxis. No sinus pain. No odynophagia. No congestion. RESPIRATORY: No cough, no congestion. No hemoptysis. CARDIOVASCULAR: No angina symptoms. No CHF symptoms. No atypical chest pain for CAD. No palpitations. No shortness of breath. GASTROINTESTINAL: No abdominal pain. No nausea or vomiting. No diarrhea or constipation. No hematemesis. No hematochezia. GENITOURINARY: No urgency. No frequency. No dysuria. No hematuria. No obstructive symptoms. No discharge. No pain. No significant abnormal bleeding. MUSCULOSKELETAL: No musculoskeletal pain; no joint swelling. NEUROLOGICAL: Awake, alert, oriented to time, place and person. No headache. No neck pain. No syncope. No seizures. No dizziness. PSYCHIATRIC: Not anxious. No depression. No suicidal thoughts. No homicidal thoughts. SKIN: No rash. No lesions. No wounds. ENDOCRINE: No unexplained weight loss. No weight gain. HEMATOLOGIC/LYMPHATIC: No anemia. No purpura. No petechiae. No prolonged or excessive bleeding. No palpable lymph nodes. PHYSICAL EXAMINATION: GENERAL: The patient is awake, alert and oriented, lying/sitting in bed in no distress. VITAL SIGNS: Temperature 97.1 F, Pulse 86, Respiratory Rate 20, BP 128/84, Pulse Ox 97% HEENT: Head normocephalic, atraumatic. Eyes: Extraocular muscles are intact. Pupils are equal, round and reactive to light and accommodation. Ears: No lesions. Nose appeared normal. Throat: No exudate or erythema. NECK: Supple. No JVD, no carotid bruit. No lymphadenopathy or thyromegaly. LUNGS: Decreased breath sounds. Clear to auscultation. Percussion note normal. Chest symmetrical. HEART: S1, S2, no S3. No murmurs. No cyanosis or clubbing. No ascites. Pulses: Dorsalis pedis and posterior tibial pulses +1 to +2 both sides. ABDOMEN: Soft. Non-tender. Bowel sounds active. No CVA tenderness. No mass felt. EXTREMITIES: No edema. Full range of motion of all extremities, equal. NEUROLOGIC: No focal deficit. Cranial nerves II through XII are grossly intact. No headache, no double vision or headache. SKIN: Not dry. Intact. Turgor-normal. LYMPHATIC: No palpable lymph nodes/no lymphedema. MUSCULOSKELETAL: Normal joints with no swelling. Muscle tone is normal. LAB REVIEW: 02/27/17 05:16 02/27/17 05:16 02/27/17 05:16: WBC 4.91, RBC 3.74 L, Hgb 11.5 L, Hct 33.1 L, MCV 88.5, MCH 30.7 , MCHC 34.7, RDW Coeff of Ancelmo 12.2, Plt Count 245, Immature Gran % (Auto) 0.2, Neut % (Auto) 39.8, Lymph % (Auto) 46.0, [place] % (Auto) 12.6 H, Eos % (Auto) 0.6 , Baso % (Auto) 0.8, Immature Gran # (Auto) 0.0, Neut # 2.0, Lymph # 2.3, [place] # 0.6, Eos # 0.0, Baso # 0.0, Sodium 143, Potassium 3.5, Chloride 110 H, Carbon Dioxide 25, Anion Gap 11.5, BUN 7, Creatinine 0.65, Estimated GFR (MDRD) 92.00, BUN/Creatinine Ratio 10.76, Glucose 91, Calcium 8.6, Total Bilirubin 0.62, AST 31 D, ALT 90 H D, Alkaline Phosphatase 59, Total Protein 6.1, Albumin 3.5, Globulin 2.6, Albumin/Globulin Ratio 1.35 ASSESSMENT: 1. Acute viral gastroenteritis. resolved. Liver ultrasound is normal. Liver profile is normal. PLAN: 1. Rest 2. Increase fluid intake. 3. No new medication. Plan and coordination of the patient's care discussed in the presence of Marketing Director and nurse. CONDITION: STABLE SCRIBED BY: GIOVANY MCCOY, Senior Project Manager scribed while in presence of service performed by Dr. CRISS VILLA on 02/27/17 ([id number])
[2017-02-27 10:26] VITALS: BP 108/76; TEMP 97.7
--- NOTE | 2017-02-27 12:29 | CM.DICTOOL ---
ADMISSION: 02/24/17 09:23 DISCHARGE: FEBRUARY 27, 2017 DATE OF SERVICE: 02/27/17 FINAL DIAGNOSIS Gastroenteritis, viral Chronic lung disease Osteoarthritis Dyslipidemia Depression Cholecystectomy Abnormal Liver Profile LAST VITALS Temp Pulse Resp BP Pulse Ox 97.1 F L 86 20 128/84 97 02/27/17 05:13 02/27/17 05:13 02/27/17 05:13 02/27/17 05:13 02/27/17 05:13 ACTIVE HOME MEDICATIONS Diphenhydramine HCl (Benadryl) 50 mg PO 2100 [facility] Last Admin: 02/26/17 20:43 Dose: 50 mg Diphenoxylate HCl/Atropine (Lomotil) 1 tab PO TID PRN PRN Reason: Diarrhea Last Admin: 02/25/17 20:33 Dose: 1 tab Ondansetron HCl (Zuplenz) 4 mg PO TID PRN nausea Last Admin: Sertraline HCl (Zoloft) 50 mg PO DAILY [facility] Last Admin: 02/27/17 09:32 Dose: 50 mg Multivitamin 1 cap daily Last Admin: Biotin 1 mg PO Daily Last Admin: Cholecalciferol 1,000 units PO Daily Last Admin: Pravastatin sodium (Pravachol) 40 mg PO Bedtime Last Admin: 02/25/2017 ALLERGIES Penicillins Adverse Reaction (Verified 02/24/17 07:40) NEW PRESCRIPTIONS: No Prescriptions SMOKING: Not Applicable DISEASE SPECIFIC EDUCATION: Gastroenteritis Diet Activity Appointment LAB REVIEW: 02/27/17 05:16 02/27/17 05:16 02/27/17 05:16: WBC 4.91, RBC 3.74 L, Hgb 11.5 L, Hct 33.1 L, MCV 88.5, MCH 30.7 , MCHC 34.7, RDW Coeff of Ancelmo 12.2, Plt Count 245, Immature Gran % (Auto) 0.2, Neut % (Auto) 39.8, Lymph % (Auto) 46.0, [place] % (Auto) 12.6 H, Eos % (Auto) 0.6 , Baso % (Auto) 0.8, Immature Gran # (Auto) 0.0, Neut # 2.0, Lymph # 2.3, [place] # 0.6, Eos # 0.0, Baso # 0.0, Sodium 143, Potassium 3.5, Chloride 110 H, Carbon Dioxide 25, Anion Gap 11.5, BUN 7, Creatinine 0.65, Estimated GFR (MDRD) 92.00, BUN/Creatinine Ratio 10.76, Glucose 91, Calcium 8.6, Total Bilirubin 0.62, AST 31 D, ALT 90 H D, Alkaline Phosphatase 59, Total Protein 6.1, Albumin 3.5, Globulin 2.6, Albumin/Globulin Ratio 1.35 PLAN: Discharge home today Diet: Resume as tolerated, soft. Avoid spicy and fatty foods. Activity: Gradually resume as tolerated An appointment is scheduled with Dr. Dickens on March 05 at 10:15 am. Mrs. Viera is alert and oriented x 3. She is independent with Activities of Daily Living. She is ambulatory without use of assistive device. She is tolerating a soft diet without reports of nausea or diarrhea. Meal intake good at 100% this morning. Skin is intact and in good condition. No rashes or irritation noted. Mrs. Viera reports she has Zofran and Lomotil at home should she experience a return of nausea or diarrhea. Chetan Dickens MD
--- NOTE | 2017-03-01 09:51 | DS ---
DATE OF SERVICE: 02/27/17 FINAL DIAGNOSIS: 1. Gastroenteritis, viral 2. Chronic lung disease 3. Osteoarthritis 4. Dyslipidemia 5. Depression 6. Cholecystectomy 7. Abnormal liver profile. LAST VITALS: Temperature 97.1, pulse 86, respiratory rate 20, blood pressure 128/84 and pulse ox 97%. DISCHARGE INSTRUCTIONS: Discharge home. An appointment is scheduled with Dr. Dickens on March 05 at 10: 15am. MEDICATIONS AT DISCHARGE: Benadryl 50mg PO 2100 Lomotil 1 tablet PO three times a day PRN Zuplenz 4mg PO three times a day PRN Zoloft 50mg PO daily Multivitamin 1 cap daily Biotin 1mg PO daily Cholecalciferol 1,000 units PO daily Pravachol 40mg PO bedtime ALLERGIES: Penicillins NEW PRESCRIPTIONS: No prescriptions DIET INSTRUCTIONS: Resume as tolerated, soft. Avoid spicy and fatty foods. ACTIVITY: Gradually resume as tolerated. SMOKING: Not applicable DISEASE SPECIFIC EDUCATION: Gastroenteritis Diet Activity Appointment HOSPITAL COURSE: The patient is a 61 year old white female was hospitalized with acute gastroenteritis, viral etiology. The patient has increase monocyte and abnormal liver profile. The patient required Iv fluids nearly three days. She was put on full liquids and was able to tolerate diarrhea and vomiting. The diarrhea continued for nearly three days. Nausea continued for two days. The patient on the day of discharge was feeling a lot better. She had normal meals x3. She was up and about having no diarrhea and no vomiting and she felt a lot better. Labs on discharge: hgb 11.5, hct 33, WBC 4,900 normal differential, creatinine 0.6, BUN 7, potassium 3.5. The patient's liver profile is normal at the time of discharge. WBC count has also come up. CONDITION: Stable. TIME SPENT: More than 60 minutes. MTDD
--- NOTE | 2017-03-01 09:52 | PN ---
02/24/17: Level 5 02/25/17: Intermediate 02/26/17: Intermediate 02/27/17: D as in discharge MTDD
== END 2017-02-27 13:11 | disposition home or self-care (01) | DRG 392 ==
LOC: ED 07:30 → MEDSURG A 09:23
PROVIDERS: ADMIT Internal Medicine; ATTEND Internal Medicine
DX: A08.4 Viral intestinal infection, unspecified (principal); K52.9 Noninfective gastroenteritis and colitis, unspecified; R42 Dizziness and giddiness; R94.5 Abnormal results of liver function studies; J44.9 Chronic obstructive pulmonary disease, unspecified; M19.90 Unspecified osteoarthritis, unspecified site; E78.5 Hyperlipidemia, unspecified; F32.9 Major depressive disorder, single episode, unspecified; Z90.49 Acquired absence of other specified parts of digestive tract; E87.6 Hypokalemia; E86.0 Dehydration; Z79.899 Other long term (current) drug therapy
CPT/HCPCS: 36415; 74176; 80053; 81001; 82150; 83690; 85025; 87086; 96361; 96374; 96375; 99283

== ENCOUNTER 2018-07-23 14:14 | Inpatient (IN) | payer OTHER ==
[2018-07-23 14:35] VITALS: BMI 23.9
--- NOTE | 2018-07-23 14:41 | ED.PDOC ---
General ED Provider: Dr. AMANDA BARRON Chief Complaint: Chest Pain Stated Complaint: Developed midepigastric upper abdominal pian at lunch to day eatting at [employer]. Pain radiated to back. Associated nausea and vomiting- alleviated discomfort temporarily but then returned. Currently discomfort is less intense. Denies radiation of pain. Time Seen by Physician: 14:30 Mode of Arrival: Walk-In Information Source: Patient Exam Limitations: No limitations Primary Care Provider: CRISS VILLA Nursing and Triage Documentation Reviewed and Agree: Yes Does patient meet sepsis criteria?: No If yes, has appropriate treatment been initiated?: Yes System Inflammatory Response Syndrome: Not Applicable Sepsis Protocol: For patient's 13 years and over: Temp is 96.8 and below OR 101 and greater Pulse >90 BPM Resp >20/minute Acutely Altered Mental Status Are patient's symptoms suggestive of a new infection, such as: -Pneumonia -Skin, Soft Tissue -Endocarditis -UTI -Bone, Joint Infection -Implantable Device -Acute Abdominal Infection -Wound Infection -Meningitis -Blood Stream Catheter Infection -Unknown Cardiovascular Complaint Exam - Chest Pain Complaint/Exam Onset: Sudden Symptoms Are: Resolved (improved) Initial Severity: Severe Current Severity: Mild Location: Reports: Midsternal (lower mid epigastric) Pain Radiates: Reports: None Character: Reports: Tightness, Burning, Pressure, Squeezing Aggravating: Reports: Deep breaths Alleviating: Reports: Spontaneous resolution (after emesis) Associated Signs and Symptoms: Reports: Diaphoresis, Nausea, Vomiting Related History: Denies: Similar episode, Rx noncompliance Related Surgical History: Reports: None (Cholecystectomy) History of Healthcare-Acquired Pneumonia: Reports: No Pulmonary Embolism Risk Factors: Reports: None Prior Care for this Complaint: No Recent Stress Test: No Recent Echo/LV Function: No JVD Present: No Subcutaneous Emphysema Present: No Diminshed Breath Sounds: No Reproducible Chest Wall Pain: No Bilateral Pulses Present: No Unequal Pulses Noted: No If Risk Factors for AMI/ACS Consider: EKG Differential Diagnoses: Other (angina, gerd) Review of Systems - Review Of Systems Constitutional: Reports: No symptoms Eyes: Reports: No symptoms Ears, Nose, Mouth, Throat: Reports: No symptoms Respiratory: Reports: No symptoms Cardiac: Reports: No symptoms GI: Reports: Abdominal pain : Reports: No symptoms Musculoskeletal: Reports: No symptoms Skin: Reports: No symptoms Neurological: Reports: No symptoms Endocrine: Reports: No symptoms All Other Systems: Reviewed and Negative Past Medical History - Past Medical History Endocrine: Reports: Dyslipidemia Cardiovascular: Reports: None Respiratory: Reports: None Hematological: Reports: None Gastrointestinal: Reports: None Genitourinary: Reports: None Neuro/Psych: Reports: Depression Musculoskeletal: Reports: None Cancer: Reports: None Last Menstrual Period: 1999 - Surgical History General Surgical History: Reports: Cholecystectomy, Other (breast cyst removal, D/C) - Family History Family History: Reports: None - Social History Smoking Status: Former smoker Hx Substance Use: No Alcohol Screening: None - Immunizations Tetanus Shot up to Date: Yes Physical Exam - Physical Exam Appearance: Ill-appearing, Well-nourished, Thin Ill-appearing: Mild Pain Distress: Moderate Eyes: ASIA, EOMI, Conjunctiva clear ENT: Ears normal, Nose normal, Oropharynx normal Neck: Supple Respiratory: Breath sounds clear Cardiovascular: RRR, Pulses normal, No rub, No murmur GI/: Soft, Bowel sounds normal, No Organomegaly, Tender Musculoskeletal: Normal strength, Limited ROM Skin: Warm, Dry Critical Care Note - Critical Care Note Total Time (mins): 0 Course - Course Hematology/Chemistry: 07/23/18 14:51 07/23/18 14:51 Orders, Labs, Meds: Lab Review 07/23/18 07/23/18 14:51 14:51 WBC 5.54 RBC 4.39 Hgb 13.7 Hct 39.7 MCV 90.4 MCH 31.2 H MCHC 34.5 RDW Coeff of Ancelmo 12.6 Plt Count 289 Immature Gran % (Auto) 0.2 Neut % (Auto) 63.7 Lymph % (Auto) 23.5 [place] % (Auto) 9.9 Eos % (Auto) 1.3 Baso % (Auto) 1.4 Immature Gran # (Auto) 0.0 Neut # (Auto) 3.5 Lymph # (Auto) 1.3 [place] # (Auto) 0.6 Eos # (Auto) 0.1 Baso # (Auto) 0.1 Sodium 140.7 Potassium 3.88 Chloride 102.1 Carbon Dioxide 32.8 H Anion Gap 9.68 BUN 10.5 Creatinine 0.82 Estimated GFR (MDRD) 70.00 BUN/Creatinine Ratio 12.80 Glucose 100.1 Calcium 9.73 Magnesium 2.13 Total Bilirubin 0.61 AST 232.0 H ALT 80.9 H Alkaline Phosphatase 81.4 Total Protein 8.12 Albumin 4.82 Globulin 3.30 Albumin/Globulin Ratio 1.46 Amylase 114.6 H Lipase 216.0 Orders Category Date Time Status EKG-(ED ONLY) Stat CARDIO 07/23/18 14:42 Completed AMYLASE Stat LAB 07/23/18 14:51 Completed CBC W/ AUTO DIFF Stat LAB 07/23/18 14:51 Completed CMP [COMPREHENSIVE METABOLIC PANEL] Stat LAB 07/23/18 14:51 Completed LIPASE Stat LAB 07/23/18 14:51 Completed MAGNESIUM Stat LAB 07/23/18 14:51 Completed Mag-Al Plus//Lidocaine [Gi Cocktail] MEDS 07/23/18 16:33 Stat 30 ml PO ONCE STA Pantoprazole Sodium [Protonix] MEDS 07/23/18 16:33 Stat 40 mg PO ONCE STA CT ABDOMEN/PELVIS WO CONTRAST Stat RADS 07/23/18 14:42 Completed Medications Discontinued Medications Generic Name Dose Route Start Last Admin Trade Name Freq PRN Reason Stop Dose Admin Al Hydroxide/Mg Hydroxide 30 ml 07/23/18 16:33 Gi Cocktail PO 07/23/18 16:34 ONCE STA Pantoprazole Sodium 40 mg 07/23/18 16:33 Protonix PO 07/23/18 16:34 ONCE STA Vital Signs: Temp Pulse Resp BP Pulse Ox 07/23/18 14:14 98.0 F 96 H 16 120/71 95 SHEKHAR Risk Score SHEKHAR Risk Score: Risk Score Odds of by 30D 0 0.1 (0.1-0.2) 1 0.3 (0.2-0.3) 2 0.4 (0.3-0.5) 3 0.7 (0.6-0.9) 4 1.2 (1.0-1.5) 5 2.2 (1.9-2.6) 6 3.0 (2.5-3.6) 7 4.8 (3.8-6.1) Departure - Departure Allergies/Adverse Reactions: Allergies Penicillins Adverse Reaction (Verified 07/23/18 14:19) Home Medications: Ambulatory Orders Biotin 1 mg PO DAILY 02/24/17 Cholecalciferol (Vitamin D3) [Vitamin D3] 1,000 unit PO DAILY 02/24/17 Diphenhydramine HCl [Benadryl] 25 mg PO BID 02/24/17 Multivitamin 1 cap PO DAILY 02/24/17 Pravastatin Sodium [Pravachol] 80 mg PO BEDTIME 02/24/17 Sertraline HCl 150 mg PO DAILY 02/24/17
--- NOTE | 2018-07-23 15:32 | CT ---
EXAM: CT of the abdomen pelvis without contrast History: Upper abdominal pain and left lower quadrant abdominal pain. Comparison: Abdominal ultrasound 02/26/2017, CT abdomen pelvis 02/24/2017 Technique: Multiplanar CT images through the abdomen pelvis were obtained without the administration of IV contrast Findings: Subsegmental atelectasis are seen within the lower lungs. No acute osseous abnormalities. Scoliosis and degenerative changes of the spine. Status post cholecystectomy. No focal liver or splenic lesions. No renal stones and no hydronephros is. Stable small benign cyst within the left kidney. No perinephric stranding. Adrenal glands are unremarkable. No peripancreatic inflammation. Stomach is moderately distended with fluid and debris . No bowel obstruction. Scattered colonic stool. No free air and no ascites. No bladder wall thic kening. Colonic diverticulosis. Adnexal structures appear appropriate for patient's age. The appen joanna is normal. Impression: 1. No acute intra-abdominal or pelvic process. 2. Colonic diverticulosis
[2018-07-23] MEDS ORDERED: PROTONIX PO STA (16:33)
[2018-07-23] MEDS ORDERED: GI COCKTAIL PO STA ×2 (16:33→18:19)
[2018-07-23] MEDS ORDERED: TORADOL IVP PRN (18:13)
[2018-07-23] MEDS ORDERED: VISTARIL INJ IM PRN (18:15)
[2018-07-23] MEDS ORDERED: ATROPINE SULFATE PFS IVP PRN (18:15)
[2018-07-23] MEDS ORDERED: TYLENOL PO PRN (18:15)
[2018-07-23] MEDS ORDERED: NITROSTAT SL PRN (18:15)
[2018-07-23] MEDS ORDERED: ZOFRAN 4 MG/2 ML IVP STA (18:19)
[2018-07-23] MEDS: MORPHINE 4 MG/ML VIAL IVP PRN (19:57)
[2018-07-23] MEDS ORDERED: PRAVACHOL PO SCH (21:00)
[2018-07-23] MEDS: BENADRYL PO SCH (21:28)
--- NOTE | 2018-07-24 07:42 | DI ---
EXAM: CHEST FRONTAL AND LATERAL VIEWS HISTORY: Chest pain. COMPARISON: None FINDINGS: Heart size is within normal limits. Lungs are clear. Normal vascularity. No pneumothora x or pleural fluid. Moderate scoliosis. IMPRESSION: No acute process identified. Scoliosis.
[2018-07-24] MEDS: ASPIRIN EC PO SCH (08:56)
[2018-07-24] MEDS: ZOLOFT PO SCH (08:57)
[2018-07-24] MEDS: NON-FORMULARY MEDICATION (Biotin [Biotin] 1 MG) PO SCH (08:57)
[2018-07-24] MEDS ORDERED: NON-FORMULARY MEDICATION (Cholecalciferol (Vitamin D3) [Vitamin D3] 1,000 UNIT) PO SCH (09:00)
[2018-07-24] MEDS ORDERED: MULTIVITAMIN TABLET PO SCH (09:00)
[2018-07-24] MEDS ORDERED: NON-FORMULARY MEDICATION (Multivitamin 1 CAP) PO SCH (09:00)
[2018-07-24] MEDS ORDERED: VITAMIN D PO SCH (09:00)
[2018-07-24] MEDS: PROTONIX PO SCH ×2 (10:28→16:56)
[2018-07-24] MEDS: LEVAQUIN 250 MG in PREMIX 50 ML D5W 1 BAG IV SCH (10:28)
[2018-07-24] MEDS: DEXTROSE 5%-1/2NS IV SOLUTION 1,000 ML IV SCH ×2 (10:28→22:12)
--- NOTE | 2018-07-24 10:48 | PCM.PROG ---
Attending Provider: ATTENDING PROVIDER: Dr. CRISS DICKENS This patient is seen with Michelle Salgado, Nurse Practitioner. DATE OF SERVICE: 07/24/18 SUBJECTIVE: This 63 year old WHITE/ F was hospitalized 07/23/18. The patient is lying in bed. Liver enzymes are significantly elevated. She was experiencing some epigastric and abdominal pain last night with intermittent nausea. No diarrhea. She has decreased appetite. She reports eating a salad at least two days ago. REVIEW OF SYSTEMS: CONSTITUTIONAL: No night sweats. No fatigue, malaise, lethargy. No fever or chills. HEENT: Eyes: No visual changes. No eye pain. No eye discharge. ENT: No runny nose. No epistaxis. No sinus pain. No odynophagia. No congestion. RESPIRATORY: No cough, no congestion. No hemoptysis. No shortness of breath. CARDIOVASCULAR: No angina symptoms. No CHF symptoms. No atypical chest pain for CAD. No palpitations. No orthopnea.. GASTROINTESTINAL: Positive for abdominal pain and nausea. No vomiting. No diarrhea or constipation. No hematemesis. No hematochezia. GENITOURINARY: No urgency. No frequency. No dysuria. No hematuria. No obstructive symptoms. No discharge. No pain. No significant abnormal bleeding. MUSCULOSKELETAL: No musculoskeletal pain; no joint swelling. NEUROLOGICAL: Awake, alert, oriented to time, place and person. No headache. No neck pain. No syncope. No seizures. No dizziness. PSYCHIATRIC: Not anxious. No depression. No suicidal thoughts. No homicidal thoughts. SKIN: No rash. No lesions. No wounds. ENDOCRINE: No unexplained weight loss. No weight gain. HEMATOLOGIC/LYMPHATIC: No anemia. No purpura. No petechiae. No prolonged or excessive bleeding. No palpable lymph nodes. PHYSICAL EXAMINATION: GENERAL: The patient is awake, alert and oriented, lying in bed in no distress. VITAL SIGNS: Temperature 98.6 F, Pulse 70, Respiratory Rate 22, BP 103/64, Pulse Ox 98% HEENT: Head normocephalic, atraumatic. Eyes: Extraocular muscles are intact. Pupils are equal, round and reactive to light and accommodation. Ears: No lesions. Nose appeared normal. Throat: No exudate or erythema. NECK: Supple. No JVD, no carotid bruit. No lymphadenopathy or thyromegaly. LUNGS: Diminished breath sounds. Clear to auscultation. Percussion note normal. Chest symmetrical. HEART: S1, S2, no S3. No murmurs. No cyanosis or clubbing. No ascites. Pulses: Dorsalis pedis and posterior tibial pulses +1 to +2 both sides. ABDOMEN: Soft. Non-tender. Bowel sounds active. No CVA tenderness. No mass felt. EXTREMITIES: No edema. Full range of motion of all extremities, equal. NEUROLOGIC: No focal deficit. Cranial nerves II through XII are grossly intact. No headache, no double vision or headache. SKIN: Warm and dry. Intact. Turgor-normal. LYMPHATIC: No palpable lymph nodes/no lymphedema. MUSCULOSKELETAL: Normal joints with no swelling. Muscle tone is normal. LAB REVIEW: 07/24/18 02:10 07/24/18 02:10 07/24/18 02:15: Troponin I < 0.012 07/24/18 02:10: WBC 3.17 L, RBC 3.99 L, Hgb 12.4, Hct 36.5 L, MCV 91.5, MCH 31.1 H, MCHC 34.0, RDW Coeff of Ancelmo 12.7, Plt Count 236, Immature Gran % (Auto) 0.3, Neut % (Auto) 48.3, Lymph % (Auto) 37.5, [place] % (Auto) 10.7 H, Eos % (Auto ) 1.9, Baso % (Auto) 1.3, Immature Gran # (Auto) 0.0, Neut # (Auto) 1.5 L, Lymph # (Auto) 1.2, [place] # (Auto) 0.3 L, Eos # (Auto) 0.1, Baso # (Auto) 0.0 07/24/18 02:10: Sodium 138.1, Potassium 4.12, Chloride 103.7, Carbon Dioxide 31.7 H, Anion Gap 6.82, BUN 9.8, Creatinine 0.78, Estimated GFR (MDRD) 74.00, BUN/Creatinine Ratio 12.56, Glucose 96.6, Calcium 8.91, Total Bilirubin 0.55, AST 1598.7 H, ALT 1059.8 H D, Alkaline Phosphatase 102.2, Total Creatine Kinase 32.5, Total Protein 6.81, Albumin 4.07, Globulin 2.74, Albumin/Globulin Ratio 1.48 07/23/18 17:22: Urine Color Yellow, Urine Clarity Clear, Urine pH 8.5, Ur Specific [place] 1.015, Urine Protein Negative, Urine Glucose (UA) Negative, Urine Ketones Negative, Urine Blood Negative, Urine Nitrite Negative, Urine Bilirubin Negative, Urine Urobilinogen 0.2, Ur Leukocyte Esterase 2+, Urine Microscopic RBC 0-2, Urine Microscopic WBC 0-2, Ur Squamous Epith Cells 0-2, Urine Bacteria 2+ 07/23/18 14:51: Total Creatine Kinase 51.6 07/23/18 14:51: Troponin I < 0.012 07/23/18 14:51: Sodium 140.7, Potassium 3.88, Chloride 102.1, Carbon Dioxide 32.8 H, Anion Gap 9.68, BUN 10.5, Creatinine 0.82, Estimated GFR (MDRD) 70.00, BUN/Creatinine Ratio 12.80, Glucose 100.1, Calcium 9.73, Magnesium 2.13, Total Bilirubin 0.61, AST 232.0 H, ALT 80.9 H, Alkaline Phosphatase 81.4, Total Protein 8.12, Albumin 4.82, Globulin 3.30, Albumin/Globulin Ratio 1.46, Amylase 114.6 H, Lipase 216.0 07/23/18 14:51: WBC 5.54, RBC 4.39, Hgb 13.7, Hct 39.7, MCV 90.4, MCH 31.2 H, MCHC 34.5, RDW Coeff of Ancelmo 12.6, Plt Count 289, Immature Gran % (Auto) 0.2, Neut % (Auto) 63.7, Lymph % (Auto) 23.5, [place] % (Auto) 9.9, Eos % (Auto) 1.3, Baso % (Auto) 1.4, Immature Gran # (Auto) 0.0, Neut # (Auto) 3.5, Lymph # (Auto ) 1.3, [place] # (Auto) 0.6, Eos # (Auto) 0.1, Baso # (Auto) 0.1 ASSESSMENT: 1. ELEVATED LIVER FUNCTION 2. EPIGASTRIC PAIN 3. POSSIBLE UTI, CULTURE PENDING 4. HYPERTENSION PLAN: 1. Hold Pravachol 2. Hold vitamins 3. Ultrasound of liver 4. Hepatitis panel 5. D/C Tylenol 6. Start Levaquin 25 mg IV daily 7. Protonix 40 mg b.i.d. 8. Will get referral to Dr. Welsh, GI 9. D5 10/30 at 82 mL/hr Plan and coordination of the patient's care discussed in the presence of Reel Hooker and nurse. CONDITION: Stable SCRIBED BY: GIOVANY MCCOY Applications Chemist scribed while in presence of service performed by Dr. Dickens/Michelle Salgado APRN on 07/24/18 ([id number])
--- NOTE | 2018-07-24 12:56 | US ---
EXAM: Abdominal ultrasound limited HISTORY: Abnormal liver enzymes with history of cholecystectomy COMPARISON: CT abdomen pelvis 07/23/2018 and ultrasound 02/26/2017 TECHNIQUE: Sonographic and limited Doppler evaluation of the right upper quadrant was performed. FINDINGS: The liver is increased in echogenicity and measures 11.5 cm. The portal vein is patent. The gallbladder has been removed. Common bile duct is unremarkable and measures 0.6 cm in diameter. The pancreas is not visualized due to bowel gas. The right kidney measures 8.6 x 3.2 x 3.1 cm with cortical thickness of 0.9 cm. There is no renal abnormality identified. IMPRESSION: 1. Increased echogenicity of the liver suggestive of intraparenchymal process or mild hepatic steato sis. 2. Prior cholecystectomy.
[2018-07-24] MEDS: MORPHINE 4 MG/ML VIAL IVP PRN (14:15)
[2018-07-24] MEDS: BENADRYL PO SCH (20:25)
[2018-07-24] MEDS ORDERED: NYSTATIN CREAM TP SCH (21:00)
[2018-07-25] MEDS: PROTONIX PO SCH ×2 (06:12→16:30)
[2018-07-25] MEDS: ZOLOFT PO SCH (09:06)
[2018-07-25] MEDS: ASPIRIN EC PO SCH (09:06)
[2018-07-25] MEDS: LEVAQUIN 250 MG in PREMIX 50 ML D5W 1 BAG IV SCH (09:07)
[2018-07-25] MEDS: NON-FORMULARY MEDICATION (Biotin [Biotin] 1 MG) PO SCH (09:07)
--- NOTE | 2018-07-25 09:08 | HP ---
DATE OF SERVICE: 07/24/18 (Admit 07/23/18) HISTORY OF PRESENT ILLNESS: 63-year-old white female who presented to the emergency room with mid epigastric upper abdominal pain, worse with eating. It had been going on for the past couple of days off and on, some nausea. She states her pain radiates to the back. PAST MEDICAL HISTORY: Dyslipidemia Depression Postmenopausal PAST SURGICAL HISTORY: Status post cholecystectomy Breast cyst removal Previous D & C REVIEW OF SYSTEMS: CONSTITUTIONAL: No night sweats. No fatigue, malaise, lethargy. No fever or chills. HEENT: Eyes: No visual changes. No eye pain. No eye discharge. ENT: No runny nose. No epistaxis. No sinus pain. No sore throat. No odynophagia. No ear pain. No congestion. RESPIRATORY: No cough, no congestion. No hemoptysis. No shortness of breath. CARDIOVASCULAR: No angina symptoms. No CHF symptoms. No atypical chest pain for CAD. No palpitations. No PND. No orthopnea. GASTROINTESTINAL: Epigastric pain, upper abdominal pain. Intermittent nausea. No vomiting. No diarrhea or constipation. No hematemesis. No hematochezia. GENITOURINARY: No urgency. No frequency. No dysuria. No hematuria. No obstructive symptoms. No discharge. No pain. No significant abnormal bleeding. MUSCULOSKELETAL: No musculoskeletal pain. No joint swelling. No arthritis. NEUROLOGICAL: No headache. No neck pain. No syncope. No seizures. No dizziness. PSYCHIATRIC: Not anxious. No depression. No suicidal thoughts. No homicidal thoughts. SKIN: No rash. No lesions. No wounds. ENDOCRINE: No unexplained weight loss. No weight gain. HEMATOLOGIC/LYMPHATIC: No anemia. No purpura. No petechiae. No prolonged or excessive bleeding. No palpable lymph nodes. PERSONAL/FAMILY/SOCIAL HISTORY: She is a former smoker. No alcohol or illicit drug use. MEDICATIONS: (HOME) Diphenhydramine (Benadryl) 50 mg p.o. bedtime Biotin 1 mg p.o. daily Multivitamin one cap p.o. daily Cholecalciferol 1,000 unit p.o. daily Sertraline 150 mg p.o. daily Pravastatin 80 mg p.o. bedtime ALLERGIES: PENICILLINS PHYSICAL EXAMINATION: VITAL SIGNS: Temperature 98, heart rate 96, respirations 16, blood pressure 120/ 71, pulse ox 95%. HEENT: Head normocephalic, atraumatic. Eyes: Extraocular muscles are intact. Pupils are equal, round and reactive to light and accommodation. Ears: No lesions. Nose appeared normal. Throat: No exudate or erythema. NECK: Supple. No JVD, no carotid bruit. No lymphadenopathy or thyromegaly. LUNGS: Diminished breath sounds. Clear to auscultation. Percussion note normal. Chest symmetrical. HEART: S1, S2, no S3. No murmurs. No cyanosis or clubbing. No ascites. Pulses: Dorsalis pedis and posterior tibial pulses +1 to +2 bilaterally. ABDOMEN: Soft. Very mild epigastric tenderness. Bowel sounds active. No CVA tenderness. No mass felt. EXTREMITIES: No edema. Full range of motion of all extremities, equal. NEUROLOGIC: No focal deficit. Cranial nerves II through XII are grossly intact. No headache, no double vision or headache. SKIN: Not dry. Intact. Turgor - normal. LYMPHATIC: No palpable lymph nodes/no lymphedema. MUSCULOSKELETAL: Normal joints with no swelling. Muscle tone is normal. LABS/X-RAY: Sodium 140, potassium 3.8, BUN 10.5, creatinine 0.82. Total bili 0.61, AST 232, ALT 80.9. Alkaline phosphatase 81, amylase 114, lipase 216. Urine shows 2+ bacteria. CK 51.6. CT of the abdomen shows no acute process, colonic diverticulosis, no diverticulitis. White count 5.5, hemoglobin 13.7, hematocrit 39.7, platelets 289. ASSESSMENT: 1. ABDOMINAL PAIN 2. EPIGASTRIC PAIN 3. ELEVATED LIVER FUNCTION 4. DYSLIPIPIDEMIA PLAN: 1. Routine telemetry orders. 2. Admit. 3. CBC, CMP daily. 4. Will do ultrasound of liver. 5. Will treat for possible urinary tract infection. 6. Culture is pending. 7. Will start on Levaquin 250 mg IV daily. 8. Normal Saline at 75 cc/hr. 9. Liver enzymes as of today have increased, AST 1598, ALT 1059. 10. Will d/c Pravastatin as well as Tylenol. 11. Ultrasound her liver. 12. Hepatitis pane. 13. GI is Dr. Welsh. She does report eating a salad within the past couple of days from a restaurant here in town. She has a temperature of 99, is unknown if there is some viral component to this elevated liver function as in a viral hepatitis, we will see again with the liver ultrasound. 14. Will start her on Protonix 40 mg b.i.d. 15. Zofran for nausea. 16. Will follow very closely. TIME SPENT: More than 70 minutes. MTDD
[2018-07-25] MEDS: DEXTROSE 5%-1/2NS IV SOLUTION 1,000 ML IV SCH ×2 (10:51→23:36)
--- NOTE | 2018-07-25 10:58 | PCM.PROG ---
Attending Provider: ATTENDING PROVIDER: Dr. CRISS VILLA DATE OF SERVICE: 07/25/18 SUBJECTIVE: This 63 year old WHITE/ F was hospitalized 07/23/18 with epigastric pain and abnormal liver profile. The patient does not have much gastric pain now. Liver enzymes are better AST from 1500 to nearly 500 and ALT 1060 to 691. She doesn't have jaundice of obstructive nature on lab findings. Appetie is normal. No nausea, no vomiting. Etiology of acute hepatitis still unknown could be viral. Acute insult like alcohol abuse or drug abuse is absent. REVIEW OF SYSTEMS: CONSTITUTIONAL: No night sweats. No fatigue, malaise, lethargy. No fever or chills. HEENT: Eyes: No visual changes. No eye pain. No eye discharge. ENT: No runny nose. No epistaxis. No sinus pain. No odynophagia. No congestion. RESPIRATORY: No cough, no congestion. No hemoptysis. No shortness of breath. CARDIOVASCULAR: No angina symptoms. No CHF symptoms. No atypical chest pain for CAD. No palpitations. No orthopnea.. GASTROINTESTINAL: No abdominal pain. No nausea or vomiting. No diarrhea or constipation. No hematemesis. No hematochezia. GENITOURINARY: No urgency. No frequency. No dysuria. No hematuria. No obstructive symptoms. No discharge. No pain. No significant abnormal bleeding. MUSCULOSKELETAL: No musculoskeletal pain; no joint swelling. NEUROLOGICAL: Awake, alert, oriented to time, place and person. No headache. No neck pain. No syncope. No seizures. No dizziness. PSYCHIATRIC: Not anxious. No depression. No suicidal thoughts. No homicidal thoughts. SKIN: No rash. No lesions. No wounds. ENDOCRINE: No unexplained weight loss. No weight gain. HEMATOLOGIC/LYMPHATIC: No anemia. No purpura. No petechiae. No prolonged or excessive bleeding. No palpable lymph nodes. PHYSICAL EXAMINATION: GENERAL: The patient is awake, alert and oriented, lying/sitting in bed in no distress. VITAL SIGNS: Temperature 97.7 F, Pulse 74, Respiratory Rate 14, BP 110/75, Pulse Ox 97% HEENT: Head normocephalic, atraumatic. Eyes: Extraocular muscles are intact. Pupils are equal, round and reactive to light and accommodation. Ears: No lesions. Nose appeared normal. Throat: No exudate or erythema. NECK: Supple. No JVD, no carotid bruit. No lymphadenopathy or thyromegaly. LUNGS: Clear to auscultation. Percussion note normal. Chest symmetrical. HEART: S1, S2, no S3. No murmurs. No cyanosis or clubbing. No ascites. Pulses: Dorsalis pedis and posterior tibial pulses +1 to +2 both sides. ABDOMEN: Soft. Non-tender. Bowel sounds active. No CVA tenderness. No mass felt. EXTREMITIES: No edema. Full range of motion of all extremities, equal. NEUROLOGIC: No focal deficit. Cranial nerves II through XII are grossly intact. No headache, no double vision or headache. SKIN: Warm and dry. Intact. Turgor-normal. LYMPHATIC: No palpable lymph nodes/no lymphedema. MUSCULOSKELETAL: Normal joints with no swelling. Muscle tone is normal. LAB REVIEW: 07/25/18 04:30 07/25/18 04:30 07/25/18 04:30: Sodium 139.0, Potassium 3.61, Chloride 104.5, Carbon Dioxide 31.5 H, Anion Gap 6.61, BUN 11.5, Creatinine 0.84, Estimated GFR (MDRD) 68.00, BUN/Creatinine Ratio 13.69, Glucose 100.8, Calcium 8.36 L, Total Bilirubin 0.36 , AST 532.3 H D, ALT 691.0 H D, Alkaline Phosphatase 130.1 D, Total Protein 6.46, Albumin 3.69, Globulin 2.77, Albumin/Globulin Ratio 1.33 07/25/18 04:30: WBC 3.35 L, RBC 3.73 L, Hgb 11.5 L, Hct 34.4 L, MCV 92.2, MCH 30.8, MCHC 33.4, RDW Coeff of Ancelmo 13.0, Plt Count 230, Immature Gran % (Auto) 0.0, Neut % (Auto) 48.7, Lymph % (Auto) 34.0, [place] % (Auto) 12.5 H, Eos % (Auto ) 3.3, Baso % (Auto) 1.5, Immature Gran # (Auto) 0.0, Neut # (Auto) 1.6 L, Lymph # (Auto) 1.1, [place] # (Auto) 0.4, Eos # (Auto) 0.1, Baso # (Auto) 0.1 07/24/18 09:30: PT 9.7, INR 0.97 ASSESSMENT: 1. ELEVATED LIVER FUNCTION 2. EPIGASTRIC PAIN 3. POSSIBLE UTI, CULTURE PENDING 4. HYPERTENSION PLAN: 1. D/C Morphine and Zofran. Plan and coordination of the patient's care discussed in the presence of Manager Culinary and nurse. CONDITION: Stable SCRIBED BY: GIOVANY MCCOY Nurse Wound scribed while in presence of service performed by Dr. CRISS VILLA on 07/25/18 ([id number])
[2018-07-25] MEDS: BENADRYL PO SCH (20:02)
[2018-07-26] MEDS: PROTONIX PO SCH (05:39)
[2018-07-26] MEDS: LEVAQUIN 250 MG in PREMIX 50 ML D5W 1 BAG IV SCH (07:58)
[2018-07-26] MEDS: ZOLOFT PO SCH (08:42)
[2018-07-26] MEDS: ASPIRIN EC PO SCH (08:43)
[2018-07-26] MEDS: NON-FORMULARY MEDICATION (Biotin [Biotin] 1 MG) PO SCH (09:00)
[2018-07-26 10:25] VITALS: BP 135/86; TEMP 98.2
--- NOTE | 2018-07-26 10:51 | CM.DICTOOL ---
ADMISSION: 07/23/18 17:07 DISCHARGE: 2017 DATE OF SERVICE: 07/26/18 FINAL DIAGNOSIS EPIGASTRIC PAIN ELEVATED LIVER FUNCTION TEST HISTORY OF: DYSPLIPIDEMIA DEPRESSION ANXIETY DIVERTICULOSIS PER CT HEPATIC STEATOSIS, MILD S/P BREAST CYST REMOVED S/P LEFT FOREARM SURGERY S/P CHOLECYSTECTOMY LAST VITALS Temp Pulse Resp BP Pulse Ox 97.8 F 74 18 105/62 96 07/26/18 05:39 07/26/18 05:39 07/26/18 05:39 07/26/18 05:39 07/26/18 05:39 TAKE THESE MEDICATIONS AT HOME Cholecalciferol (Vitamin D) 1,000 unit PO DAILY [facility] Last Admin: 07/24/18 08:58 Dose: Not Given Diphenhydramine HCl (Benadryl) 50 mg PO BEDTIME [facility] Last Admin: 07/25/18 20:02 Dose: 50 mg Levofloxacin 250 mg DAILY [facility] Last Admin: 07/26/18 07:58 Dose: 75 mls/hr Multivitamins (Multivitamin Tablet) 1 tab PO DAILY [facility] Last Admin: 07/24/18 08:58 Dose: Not Given Non-Formulary Medication (Biotin [Biotin]) 1 mg PO DAILY [facility] Last Admin: 07/25/18 09:07 Dose: Not Given Sertraline HCl (Zoloft) 150 mg PO DAILY [facility] Last Admin: 07/26/18 08:42 Dose: 150 mg ALLERGIES Penicillins Adverse Reaction (Verified 07/23/18 14:19) Discontinued Medications Pravachol 80 mg at bedtime NEW PRESCRIPTIONS: Levaquin 250 mg daily for 5 days SMOKING: Not Applicable DISEASE SPECIFIC EDUCATION: DIET ELEVATED LIVER FUNCTION TEST APPOINTMENTS, INCLUDING GI LAB REVIEW: 07/26/18 04:20 07/26/18 04:20 07/26/18 04:20: Sodium 140.2, Potassium 3.51, Chloride 108.6 H, Carbon Dioxide 27.9, Anion Gap 7.21, BUN 13.1, Creatinine 0.75, Estimated GFR (MDRD) 78.00, BUN /Creatinine Ratio 17.46, Glucose 100.8, Calcium 8.12 L, Total Bilirubin 0.10 L, AST 147.6 H D, ALT 362.6 H D, Alkaline Phosphatase 97.1 D, Total Protein 5.92 L , Albumin 3.35 L, Globulin 2.57, Albumin/Globulin Ratio 1.30 07/26/18 04:20: WBC 3.87 L, RBC 3.63 L, Hgb 11.1 L, Hct 33.8 L, MCV 93.1, MCH 30.6, MCHC 32.8, RDW Coeff of Ancelmo 12.8, Plt Count 202, Immature Gran % (Auto) 0.0, Neut % (Auto) 44.9, Lymph % (Auto) 40.6, [place] % (Auto) 10.1 H, Eos % (Auto ) 3.4, Baso % (Auto) 1.0, Immature Gran # (Auto) 0.0, Neut # (Auto) 1.7 L, Lymph # (Auto) 1.6, [place] # (Auto) 0.4, Eos # (Auto) 0.1, Baso # (Auto) 0.0 07/24/18 09:30: Hepatitis A IgM Ab Negative, Hep Bs Antigen Negative, Hep B Core IgM Ab Negative, Hep C Ab Signal/Cutoff < 0.1 PLAN: DISCHARGE HOME DIET: REGULAR TOLERATED, 5-6 SMALL MEALS DAILY ENCOURAGED ACTIVITY: GRADUALLY RESUME TOLERATED CONTINUE MEDICATIONS LISTED ON NURSING DISCHARGE INFORMATION SHEET DO NOT TAKE PRAVACHOL UNTIL INSTRUCTED DO NOT TAKE TYLENOL AN APPOINTMENT IS SCHEDULED WITH DR. VILLA/ANH VERONICA APRN ON JULY 29, 2018 AT 8:45 AN APPOINTMENT IS SCHEDULED WITH DR. STEFAN ESPINO ON AUGUST 19, 2018 AT 2:00 PM CODE STATUS: DO NOT RESUSCITATE PER PATIENT REQUEST MRS. MENDOZA IS ALERT AND ORIENTED X 3. SHE IS INDEPENDENT WITH ACTIVITIES OF DAILY LIVING AND REQUIRES NO ASSISTIVE DEVICE WITH AMBULATION. SHE IS AMBULATORY WITHOUT STAFF ASSISTANCE. MEAL INTAKES ARE GOOD AT 75-100%. NO ABDOMINAL PAIN OR NAUSEA REPORTED BY THE PATIENT. SHE IS CONTINENT OF BLADDER AND BOWEL. LAST BOWEL MOVEMENT YESTERDAY. SKIN TURGOR IS GOOD. SKIN IS INTACT AND FREE OF DECUBITUS ULCERS, RASHES OR IRRITATION. CRISS VILLA MD ANH VERONICA APRN
--- NOTE | 2018-07-26 15:15 | DS ---
DATE OF SERVICE: 07/26/18 FINAL DIAGNOSIS: EPIGASTRIC PAIN ELEVATED LIVER FUNCTION TEST HISTORY OF: DYSLIPIDEMIA DEPRESSION ANXIETY DIVERTICULOSIS PER CT HEPATIC STEATOSIS, MILD S/P BREAST CYST REMOVED S/P LEFT FOREARM SURGERY S/P CHOLECYSTECTOMY DISCHARGE INSTRUCTIONS: AN APPOINTMENT IS SCHEDULED WITH DR. VILLA/ANH VERONICA APRN ON JULY 29, 2018 AT 8:45 AN APPOINTMENT IS SCHEDULED WITH DR. STEFAN WELSH ON AUGUST 19, 2018 AT 2:00 PM MEDICATIONS AT DISCHARGE: Cholecalciferol (Vitamin D) 1,000 unit PO DAILY [facility] Last Admin: 07/24/18 08:58 Dose: Not Given Diphenhydramine HCl (Benadryl) 50 mg PO BEDTIME [facility] Last Admin: 07/25/18 20:02 Dose: 50 mg Levofloxacin 250 mg DAILY [facility] Last Admin: 07/26/18 07:58 Dose: 75 mls/hr Multivitamins (Multivitamin Tablet) 1 tab PO DAILY [facility] Last Admin: 07/24/18 08:58 Dose: Not Given Non-Formulary Medication (Biotin [Biotin]) 1 mg PO DAILY [facility] Last Admin: 07/25/18 09:07 Dose: Not Given Sertraline HCl (Zoloft) 150 mg PO DAILY [facility] Last Admin: 07/26/18 08:42 Dose: 150 mg NEW PRESCRIPTIONS: Levaquin 250 mg daily for 5 days DIET INSTRUCTIONS: DIET: REGULAR TOLERATED, 5-6 SMALL MEALS DAILY ENCOURAGED ACTIVITY: GRADUALLY RESUME TOLERATED CODE STATUS: DO NOT RESUSCITATE PER PATIENT REQUEST SMOKING: Not Applicable DISEASE SPECIFIC EDUCATION: DIET ELEVATED LIVER FUNCTION TEST APPOINTMENTS, INCLUDING GI HOSPITAL COURSE: This is a white female who presented to the emergency room and was admitted with upper abdominal pain, epigastric pain. Her liver functions were slightly elevated on admission. The morning following admission her AST was as high as 1 ,598 and ALT was 1,059. Ultrasound of the liver was done showing hepatic steatosis. Hepatitis panel was negative. We D/C'd her Tylenol and Pravastatin. She did have 2+ bacteria in her urine so she was started on Levaquin 250 mg IV daily. After discontinuing her Pravastatin, giving IV fluids her liver function has steadily declined on its own. Today it is significantly improved with AST of 147 and ALT of 362. She had no GI symptoms other than pain. No nausea, vomiting or diarrhea; believe this is likely a viral reaction with elevated liver enzymes, however, her GI is Dr. Welsh and she has an appointment with her scheduled for August 19. She is instructed not to take any Tylenol, Pravastatin until then. She is eating 100%. Her vital signs have been normal. She is not experiencing any pain. She is feeling much better. She had reported that she had eaten a salad at a restaurant a few days prior to having the pain and so likely she contracted some sort of bacteria or virus which caused the inflammation in her liver; however, she again is going to see Dr. Welsh. We will follow up with her next week and repeat her liver enzymes. She is instructed just to eat small frequent meals. SPECIFIC ORDERS: CONTINUE MEDICATIONS LISTED ON NURSING DISCHARGE INFORMATION SHEET DO NOT TAKE PRAVACHOL UNTIL INSTRUCTED DO NOT TAKE TYLENOL TIME SPENT: More than 60 minutes. BIB
== END 2018-07-26 11:37 | disposition home or self-care (01) | DRG 392 ==
LOC: ED 14:14 → MEDSURG A 17:07
PROVIDERS: ADMIT Internal Medicine; ATTEND Internal Medicine
DX: R11.2 Nausea with vomiting, unspecified (principal); R94.5 Abnormal results of liver function studies; R10.13 Epigastric pain; R10.10 Upper abdominal pain, unspecified; E78.5 Hyperlipidemia, unspecified; I10 Essential (primary) hypertension
CPT/HCPCS: 36415; 80053; 80074; 81001; 82150; 82550; 83690; 83735; 84484; 85025; 85610; 87086; 93005; 93010; 99284

== ENCOUNTER 2018-07-29 09:17 | Outpatient (CLI) | payer OTHER | END 2018-07-29 09:18 | disposition home or self-care (01) | LOC: LAB 09:17 | PROVIDERS: ATTEND Internal Medicine | DX: R94.5 Abnormal results of liver function studies (principal) | CPT/HCPCS: 36415; 80053; 85025 ==